=== PATIENT | female | born 1955 | race American Indian/Alaskan Native ===

== ENCOUNTER 2017-08-31 17:47 | Emergency (ER) | payer SELFPAY ==
[2017-08-31] MEDS ORDERED: GEODON IM ONE (19:24)
[2017-08-31] MEDS ORDERED: ATIVAN IM ONE (19:25)
[2017-08-31] MEDS ORDERED: BENADRYL IM ONE (19:25)
[2017-08-31 20:25] LABS: Basophils # (Auto) 0.1 K/mm3 (0.0-0.1); Basophils % (Auto) 0.6 % (0.0-1.8); Eosinophils # (Auto) 0.1 K/mm3 (0.0-0.4); Eosinophils % (Auto) 0.7 % (0.0-4.3); Hematocrit 38.6 % (30.3-42.9); Lymphocytes # (Auto) 2.4 K/mm3 (1.2-5.4); Mean Corpuscular HGB Conc 31 % (30-34); Mean Corpuscular Hemoglobin 22 pg (28-32); Mean Corpuscular Volume 70 fl (79-97); Monocytes # (Auto) 0.6 K/mm3 (0.0-0.8); Monocytes % (Auto) 6.1 % (0.0-7.3); Platelet Count 431 K/mm3 (140-440); Red Blood Count 5.54 M/mm3 (3.65-5.03); Red Cell Distribution Width 18.2 % (13.2-15.2)
[2017-08-31 20:37] LABS: Bacteria,Urine 1+ /HPF (Negative); Bilirubin,Urine NEG (Negative); Blood,Urine NEG (Negative); Color,Urine Yellow (Yellow); Granular Casts,Urine 14 /LPF; Hyaline Casts,Urine 19 /LPF; Mucus,Urine FEW /HPF; Urobilinogen,Urine < 2.0 mg/dL (<2.0)
[2017-08-31 20:50] LABS: Amphetamine Screen,Urine PRESUMPTIVE NEGATIVE; Benzodiazepines Screen,Urine PRESUMPTIVE NEGATIVE; Cannabinoid Screen,Urine PRESUMPTIVE NEGATIVE; Cocaine Screen,Urine PRESUMPTIVE NEGATIVE; Methadone Screen,Urine PRESUMPTIVE NEGATIVE; Opiate Screen,Urine PRESUMPTIVE NEGATIVE
[2017-08-31 21:11] LABS: BUN/Creatinine Ratio 9; Blood Urea Nitrogen 6 mg/dL (7-17); Calcium 8.9 mg/dL (8.4-10.2); Hemolysis Index 3
[2017-08-31] MEDS ORDERED: NACL 0.9% 1000 ML 1,000 ML IV ONE ×2 (22:21)
[2017-08-31] MEDS ORDERED: ROCEPHIN 500 MG in NACL 0.9% 50 ML IV ONE (22:22)
[2017-08-31] MEDS ORDERED: cefTRIAXone 0.5 GM in NACL 0.9% 20 ML IV ONE (22:30)
[2017-08-31] MEDS ORDERED: POTASSIUM CHLORIDE PO ONE (22:37)
[2017-08-31] MEDS ORDERED: ATARAX PO PRN (23:25)
[2017-08-31] MEDS ORDERED: DESYREL PO ONE (23:26)
--- NOTE | 2017-09-01 01:03 | Emergency Department Report ---
<RAHUL GUERRERO - Last Filed: 09/01/17 03:14> ED Psych HPI - General Chief Complaint: Psych Stated Complaint: MH EVAL Time Seen by Provider: 08/31/17 19:00 - Related Data Home Medications Medication Instructions Recorded Confirmed Last Taken Buspirone HCl [busPIRone] 7.5 mg PO BID 09/01/17 09/01/17 Unknown Escitalopram [Lexapro] 20 mg PO DAILY 09/01/17 09/01/17 Unknown Levothyroxine [Synthroid] 25 mcg PO QAM 09/01/17 09/01/17 Unknown Loratadine [Claritin] 10 mg PO DAILY 09/01/17 09/01/17 Unknown Polyethylene Glycol 3350 [Miralax 17 gm PO QDAY 09/01/17 09/01/17 Unknown 3350] Quetiapine Fumarate [QUEtiapine 25 mg PO DAILY 09/01/17 09/01/17 Unknown Fumarate] amLODIPine [Norvasc] 10 mg PO DAILY 09/01/17 09/01/17 Unknown metFORMIN [Glucophage] 1,000 mg PO BID 09/01/17 09/01/17 Unknown Allergies Allergy/AdvReac Type Severity Reaction Status Date / Time olanzapine [From Zyprexa] Allergy Hives Verified 08/31/17 17:58 ED Review of Systems ROS: Stated complaint: MH EVAL Other details as noted in HPI ED Past Medical Hx - Medications Home Medications: Home Medications Medication Instructions Recorded Confirmed Last Taken Type Buspirone HCl [busPIRone] 7.5 mg PO BID 09/01/17 09/01/17 Unknown History Escitalopram [Lexapro] 20 mg PO DAILY 09/01/17 09/01/17 Unknown History Levothyroxine [Synthroid] 25 mcg PO QAM 09/01/17 09/01/17 Unknown History Loratadine [Claritin] 10 mg PO DAILY 09/01/17 09/01/17 Unknown History Polyethylene Glycol 3350 [Miralax 17 gm PO QDAY 09/01/17 09/01/17 Unknown History 3350] Quetiapine Fumarate [QUEtiapine 25 mg PO DAILY 09/01/17 09/01/17 Unknown History Fumarate] amLODIPine [Norvasc] 10 mg PO DAILY 09/01/17 09/01/17 Unknown History metFORMIN [Glucophage] 1,000 mg PO BID 09/01/17 09/01/17 Unknown History ED Course Vital Signs 08/31/17 08/31/17 09/01/17 18:26 21:57 00:42 Temperature 98.9 F 98.1 F Pulse Rate 113 H 81 Respiratory 16 16 18 Rate Blood Pressure Blood Pressure 164/90 125/65 [Right] O2 Sat by Pulse 99 98 98 Oximetry 09/01/17 09/01/17 08:45 13:00 Temperature 98.7 F Pulse Rate 74 88 Respiratory 20 Rate Blood Pressure 144/83 Blood Pressure 130/64 [Right] O2 Sat by Pulse 98 Oximetry - Reevaluation(s) Reevaluation #3: 09/01/17 03:14 Laboratory studies reviewed and appreciated. The patient's sodium has been corrected appropriately. there does not appear to be an immediate medical contraindication to psychiatric admission, evaluation and consultation at this time. Crisis team is informed. ED Medical Decision Making - Lab Data Result diagrams: 08/31/17 20:11 09/01/17 01:51 Critical care attestation.: If time is entered above; I have spent that time in minutes in the direct care of this critically ill patient, excluding procedure time. ED Disposition Clinical Impression: Acute psychosis, Combative behavior, Paranoia, Medical clearance for psychiatric admission Disposition: [id number] PSY HOSP/PSY UNIT Condition: Stable <FRANSISCA KNIGHT - Last Filed: 09/01/17 20:58> ED Psych HPI - General Source: EMS Mode of arrival: Stretcher Limitations: No Limitations - History of Present Illness Initial Comments: 62-year-old female with a psychiatric history and history of diabetes, hypothyroidism, and hypertension (based on medlist) presents to the hospital from home with paranoia, psychosis, and combative behavior. Patient apparently stating that the devil was at the shelter and his mother's children. Patient is agitated and does not want to be examined. She is actively psychotic and aggressive in the ED. No further history of present illness available at this time ED Review of Systems Comment: Unobtainable due to pts medical conditions ED Past Medical Hx - Past Medical History Previous Medical History?: Yes Hx Hypertension: Yes Hx Diabetes: Yes Hx Psychiatric Treatment: Yes Additional medical history: Hypothyroidism - Social History Smoking Status: Unknown if ever smoked ED Physical Exam - General Limitations: No Limitations - Other Other exam information: General: Patient presents alert and yelling Head exam: Atraumatic, normocephalic Eyes exam: Normal appearance, pupils equal reactive to light ENT: Moist mucous membrane, normal oropharynx Neck exam: Normal inspection, full range of motion, no meningismus nontender Respiratory exam: Clear to auscultation bilateral, no wheezes, rales, crackles Cardiovascular: Normal rate and rhythm, normal heart sounds Abdomen: Soft, nondistended, and nontender, with normal bowel sounds, no rebound, or guarding Extremity: Full range of motion normal inspection no deformity Back: Normal Inspection, full range of motion, no tenderness Neurologic: Alert, delusional, combative, creatinine nerves intact without facial droop, no motor or sensory deficit and ambulating without difficulty Psychiatric: Delusional, psychotic, combative Skin: Warm, dry, intact ED Course - Reevaluation(s) Reevaluation #1: 09/01/17 01:00 Patient required Geodon, Ativan, and Benadryl IM noted for her to be cooperative. Now she is more cooperative although still psychotic. She is following commands and able to take oral medication Reevaluation #2: 09/01/17 01:10 I initially continue patient's medications as listed on the MAR on the chart during previous nursing shift. However, patient presents paperwork from [facility] ( june) provided has a completely different listed of medication. I am unclear as to what patient medications. I canceled the reconcolled meds and instructed RN to place the meds listed on the d/c paperwork as her current meds. - Consultations Consultation #1: 08/31/17 Case was discussed with Dr. Loredo events and promotions assistant for nephrology regarding hyponatremia. Patient will be treated with 2 L of normal saline and value will repeated. ED Medical Decision Making - Lab Data Result diagrams: 08/31/17 20:11 09/01/17 01:51 Lab Results 08/31/17 08/31/17 08/31/17 Range/Units 18:53 18:53 20:11 WBC (4.5-11.0) K/mm3 RBC (3.65-5.03) M/mm3 Hgb (10.1-14.3) gm/dl Hct (30.3-42.9) % MCV (79-97) fl MCH (28-32) pg MCHC (30-34) % RDW (13.2-15.2) % Plt Count (140-440) K/mm3 Lymph % (Auto) (13.4-35.0) % [place] % (Auto) (0.0-7.3) % Eos % (Auto) (0.0-4.3) % Baso % (Auto) (0.0-1.8) % Lymph # (1.2-5.4) K/mm3 [place] # (0.0-0.8) K/mm3 Eos # (0.0-0.4) K/mm3 Baso # (0.0-0.1) K/mm3 Seg Neutrophils % (40.0-70.0) % Seg Neutrophils # (1.8-7.7) K/mm3 Sodium (137-145) mmol/L Potassium (3.6-5.0) mmol/L Chloride (98-107) mmol/L Carbon Dioxide (22-30) mmol/L Anion Gap mmol/L BUN (7-17) mg/dL Creatinine (0.7-1.2) mg/dL Estimated GFR ml/min BUN/Creatinine Ratio % Glucose (65-100) mg/dL Calcium (8.4-10.2) mg/dL Magnesium (1.7-2.3) mg/dL Urine Color Yellow (Yellow) Urine Turbidity Clear (Clear) Urine pH 6.0 (5.0-7.0) Ur Specific [place] 1.010 (1.003-1.030) Urine Protein 100 mg/dl (Negative) mg/dL Urine Glucose (UA) Neg (Negative) mg/dL Urine Ketones Neg (Negative) mg/dL Urine Blood Neg (Negative) Urine Nitrite Neg (Negative) Urine Bilirubin Neg (Negative) Urine Urobilinogen < 2.0 (<2.0) mg/dL Ur Leukocyte Esterase Tr (Negative) Urine WBC (Auto) 15.0 H (0.0-6.0) /HPF Urine RBC (Auto) 4.0 (0.0-6.0) /HPF U Epithel Cells (Auto) 4.0 (0-13.0) /HPF Urine Bacteria (Auto) 1+ (Negative) /HPF Hyaline Casts 19 /LPF Granular Casts 14 /LPF Urine Mucus Few /HPF Salicylates < 0.3 L (2.8-20.0) mg/dL Urine Opiates Screen Presumptive negative Urine Methadone Screen Presumptive negative Acetaminophen (10.0-30.0) ug/mL Ur Barbiturates Screen Presumptive negative Valproic Acid (50-100) ug/mL Ur Phencyclidine Scrn Presumptive negative Ur Amphetamines Screen Presumptive negative U Benzodiazepines Scrn Presumptive negative Urine Cocaine Screen Presumptive negative U Marijuana (THC) Screen Presumptive negative Drugs of Abuse Note Disclamer Plasma/Serum Alcohol (0-0.07) % 08/31/17 08/31/17 08/31/17 Range/Units 20:11 20:11 20:11 WBC (4.5-11.0) K/mm3 RBC (3.65-5.03) M/mm3 Hgb (10.1-14.3) gm/dl Hct (30.3-42.9) % MCV (79-97) fl MCH (28-32) pg MCHC (30-34) % RDW (13.2-15.2) % Plt Count (140-440) K/mm3 Lymph % (Auto) (13.4-35.0) % [place] % (Auto) (0.0-7.3) % Eos % (Auto) (0.0-4.3) % Baso % (Auto) (0.0-1.8) % Lymph # (1.2-5.4) K/mm3 [place] # (0.0-0.8) K/mm3 Eos # (0.0-0.4) K/mm3 Baso # (0.0-0.1) K/mm3 Seg Neutrophils % (40.0-70.0) % Seg Neutrophils # (1.8-7.7) K/mm3 Sodium 127 L (137-145) mmol/L Potassium 3.1 L (3.6-5.0) mmol/L Chloride 88.1 L (98-107) mmol/L Carbon Dioxide 21 L (22-30) mmol/L Anion Gap 21 mmol/L BUN 6 L (7-17) mg/dL Creatinine 0.7 (0.7-1.2) mg/dL Estimated GFR > 60 ml/min BUN/Creatinine Ratio 9 % Glucose 169 H (65-100) mg/dL Calcium 8.9 (8.4-10.2) mg/dL Magnesium (1.7-2.3) mg/dL Urine Color (Yellow) Urine Turbidity (Clear) Urine pH (5.0-7.0) Ur Specific [place] (1.003-1.030) Urine Protein (Negative) mg/dL Urine Glucose (UA) (Negative) mg/dL Urine Ketones (Negative) mg/dL Urine Blood (Negative) Urine Nitrite (Negative) Urine Bilirubin (Negative) Urine Urobilinogen (<2.0) mg/dL Ur Leukocyte Esterase (Negative) Urine WBC (Auto) (0.0-6.0) /HPF Urine RBC (Auto) (0.0-6.0) /HPF U Epithel Cells (Auto) (0-13.0) /HPF Urine Bacteria (Auto) (Negative) /HPF Hyaline Casts /LPF Granular Casts /LPF Urine Mucus /HPF Salicylates (2.8-20.0) mg/dL Urine Opiates Screen Urine Methadone Screen Acetaminophen < 5.0 L (10.0-30.0) ug/mL Ur Barbiturates Screen Valproic Acid (50-100) ug/mL Ur Phencyclidine Scrn Ur Amphetamines Screen U Benzodiazepines Scrn Urine Cocaine Screen U Marijuana (THC) Screen Drugs of Abuse Note Plasma/Serum Alcohol < 0.01 (0-0.07) % 08/31/17 08/31/17 08/31/17 Range/Units 20:11 22:55 Unknown WBC 9.1 (4.5-11.0) K/mm3 RBC 5.54 H (3.65-5.03) M/mm3 Hgb 12.0 (10.1-14.3) gm/dl Hct 38.6 (30.3-42.9) % MCV 70 L (79-97) fl MCH 22 L (28-32) pg MCHC 31 (30-34) % RDW 18.2 H (13.2-15.2) % Plt Count 431 (140-440) K/mm3 Lymph % (Auto) 26.0 (13.4-35.0) % [place] % (Auto) 6.1 (0.0-7.3) % Eos % (Auto) 0.7 (0.0-4.3) % Baso % (Auto) 0.6 (0.0-1.8) % Lymph # 2.4 (1.2-5.4) K/mm3 [place] # 0.6 (0.0-0.8) K/mm3 Eos # 0.1 (0.0-0.4) K/mm3 Baso # 0.1 (0.0-0.1) K/mm3 Seg Neutrophils % 66.6 (40.0-70.0) % Seg Neutrophils # 6.1 (1.8-7.7) K/mm3 Sodium (137-145) mmol/L Potassium (3.6-5.0) mmol/L Chloride (98-107) mmol/L Carbon Dioxide (22-30) mmol/L Anion Gap mmol/L BUN (7-17) mg/dL Creatinine (0.7-1.2) mg/dL Estimated GFR ml/min BUN/Creatinine Ratio % Glucose (65-100) mg/dL Calcium (8.4-10.2) mg/dL Magnesium 1.70 (1.7-2.3) mg/dL Urine Color (Yellow) Urine Turbidity (Clear) Urine pH (5.0-7.0) Ur Specific [place] (1.003-1.030) Urine Protein (Negative) mg/dL Urine Glucose (UA) (Negative) mg/dL Urine Ketones (Negative) mg/dL Urine Blood (Negative) Urine Nitrite (Negative) Urine Bilirubin (Negative) Urine Urobilinogen (<2.0) mg/dL Ur Leukocyte Esterase (Negative) Urine WBC (Auto) (0.0-6.0) /HPF Urine RBC (Auto) (0.0-6.0) /HPF U Epithel Cells (Auto) (0-13.0) /HPF Urine Bacteria (Auto) (Negative) /HPF Hyaline Casts /LPF Granular Casts /LPF Urine Mucus /HPF Salicylates (2.8-20.0) mg/dL Urine Opiates Screen Urine Methadone Screen Acetaminophen (10.0-30.0) ug/mL Ur Barbiturates Screen Valproic Acid 3.0 L (50-100) ug/mL Ur Phencyclidine Scrn Ur Amphetamines Screen U Benzodiazepines Scrn Urine Cocaine Screen U Marijuana (THC) Screen Drugs of Abuse Note Plasma/Serum Alcohol (0-0.07) % - Medical Decision Making Acute agitation and psychosis Patient required IM medication and he ED for cooperation We'll continue currently prescribed medication orally Mild Hyponatremia 2 L normal saline provided Repeat pending Mild Hypokalemia By mouth potassium provided UTI IV Rocephin initiated Macrobid by mouth will be continued Pt s/o to Dr Guerrero, recheck sodium levels, K levels, may be medically cleared if they improve chart reviewed the next day. Electrolytes abnormalities have been corrected and patient is medically cleared for psychiatric transfer. - Differential Diagnosis psychosis, encephalopathy, paranoia, Critical Care Time: No ED Disposition Is pt being admited?: No Time of Disposition: 01:36
[2017-09-01 02:40] LABS: BUN/Creatinine Ratio 9; Blood Urea Nitrogen 6 mg/dL (7-17); Hemolysis Index 0
[2017-09-01] MEDS: SYNTHROID PO SCH (06:35)
[2017-09-01] MEDS: GLUCOPHAGE PO SCH ×2 (09:00→17:56)
[2017-09-01] MEDS ORDERED: NON-FORMULARY (Omeprazole [Omeprazole] 40 MG) PO SCH (10:00)
[2017-09-01] MEDS ORDERED: BUSPIRONE HCL 7.5 MG PO SCH (10:00)
[2017-09-01] MEDS ORDERED: PROTONIX PO SCH (10:00)
[2017-09-01] MEDS ORDERED: BENADRYL PO SCH (10:00)
[2017-09-01] MEDS ORDERED: NORVASC PO SCH (10:00)
[2017-09-01] MEDS ORDERED: DETROL LA PO SCH (10:00)
[2017-09-01] MEDS ORDERED: QUETIAPINE FUMARATE 25 MG PO SCH (10:00)
[2017-09-01] MEDS ORDERED: MOBIC PO SCH (10:00)
[2017-09-01] MEDS: BUSPAR PO SCH ×2 (12:57→22:00)
[2017-09-01] MEDS: NORVASC PO SCH (13:00)
[2017-09-01] MEDS: MACROBID PO SCH ×2 (13:00→22:00)
[2017-09-01] MEDS: LEXAPRO PO SCH (13:00)
[2017-09-01] MEDS: CLARITIN PO SCH (13:00)
[2017-09-01] MEDS: MIRALAX 3350 PO SCH (13:15)
[2017-09-01] MEDS ORDERED: DESYREL PO SCH (22:00)
[2017-09-02] MEDS ORDERED: TYLENOL PO ONE (00:34)
[2017-09-02] MEDS: SYNTHROID PO SCH (06:10)
[2017-09-02] MEDS: GLUCOPHAGE PO SCH ×2 (08:00→17:12)
[2017-09-02] MEDS: LEXAPRO PO SCH (09:53)
[2017-09-02] MEDS: BUSPAR PO SCH ×2 (09:53→22:09)
[2017-09-02] MEDS: NORVASC PO SCH (09:53)
[2017-09-02] MEDS: CLARITIN PO SCH (09:53)
[2017-09-02] MEDS: MACROBID PO SCH ×2 (10:00→22:09)
[2017-09-02] MEDS: MIRALAX 3350 PO SCH (10:00)
--- NOTE | 2017-09-02 10:55 | Emergency Department Report ---
ED Neuro Deficit HPI - General Chief Complaint: Psych Stated Complaint: MH EVAL Time Seen by Provider: 08/31/17 19:00 Source: EMS Mode of arrival: Stretcher Limitations: No Limitations - Related Data Home Medications: Home Medications Medication Instructions Recorded Confirmed Last Taken Buspirone HCl [busPIRone] 7.5 mg PO BID 09/01/17 09/01/17 Unknown Escitalopram [Lexapro] 20 mg PO DAILY 09/01/17 09/01/17 Unknown Levothyroxine [Synthroid] 25 mcg PO QAM 09/01/17 09/01/17 Unknown Loratadine [Claritin] 10 mg PO DAILY 09/01/17 09/01/17 Unknown Polyethylene Glycol 3350 [Miralax 17 gm PO QDAY 09/01/17 09/01/17 Unknown 3350] Quetiapine Fumarate [QUEtiapine 25 mg PO DAILY 09/01/17 09/01/17 Unknown Fumarate] amLODIPine [Norvasc] 10 mg PO DAILY 09/01/17 09/01/17 Unknown metFORMIN [Glucophage] 1,000 mg PO BID 09/01/17 09/01/17 Unknown Allergies/Adverse Reactions: Allergies Allergy/AdvReac Type Severity Reaction Status Date / Time olanzapine [From Zyprexa] Allergy Hives Verified 08/31/17 17:58 ED Review of Systems ROS: Stated complaint: MH EVAL Other details as noted in HPI ED Past Medical Hx - Past Medical History Previous Medical History?: Yes Hx Hypertension: Yes Hx Diabetes: Yes Hx Psychiatric Treatment: Yes Additional medical history: Hypothyroidism - Social History Smoking Status: Unknown if ever smoked - Medications Home Medications: Home Medications Medication Instructions Recorded Confirmed Last Taken Type Buspirone HCl [busPIRone] 7.5 mg PO BID 09/01/17 09/01/17 Unknown History Escitalopram [Lexapro] 20 mg PO DAILY 09/01/17 09/01/17 Unknown History Levothyroxine [Synthroid] 25 mcg PO QAM 09/01/17 09/01/17 Unknown History Loratadine [Claritin] 10 mg PO DAILY 09/01/17 09/01/17 Unknown History Polyethylene Glycol 3350 [Miralax 17 gm PO QDAY 09/01/17 09/01/17 Unknown History 3350] Quetiapine Fumarate [QUEtiapine 25 mg PO DAILY 09/01/17 09/01/17 Unknown History Fumarate] amLODIPine [Norvasc] 10 mg PO DAILY 09/01/17 09/01/17 Unknown History metFORMIN [Glucophage] 1,000 mg PO BID 09/01/17 09/01/17 Unknown History ED Neuro Physical Exam - General Limitations: No Limitations ED Course Vital Signs 08/31/17 08/31/17 09/01/17 18:26 21:57 00:42 Temperature 98.9 F 98.1 F Pulse Rate 113 H 81 Respiratory 16 16 18 Rate Blood Pressure Blood Pressure 164/90 125/65 [Right] O2 Sat by Pulse 99 98 98 Oximetry 09/01/17 09/01/17 09/01/17 08:45 13:00 20:30 Temperature 98.7 F 97.2 F L Pulse Rate 74 88 90 Respiratory 20 18 Rate Blood Pressure 144/83 Blood Pressure 130/64 133/84 [Right] O2 Sat by Pulse 98 99 Oximetry 09/02/17 10:01 Temperature Pulse Rate 74 Respiratory 18 Rate Blood Pressure Blood Pressure 143/86 [Right] O2 Sat by Pulse 98 Oximetry - Lab Data Result diagrams: 08/31/17 20:11 09/01/17 01:51 Lab Results 08/31/17 08/31/17 08/31/17 Range/Units 18:53 18:53 20:11 WBC (4.5-11.0) K/mm3 RBC (3.65-5.03) M/mm3 Hgb (10.1-14.3) gm/dl Hct (30.3-42.9) % MCV (79-97) fl MCH (28-32) pg MCHC (30-34) % RDW (13.2-15.2) % Plt Count (140-440) K/mm3 Lymph % (Auto) (13.4-35.0) % [place] % (Auto) (0.0-7.3) % Eos % (Auto) (0.0-4.3) % Baso % (Auto) (0.0-1.8) % Lymph # (1.2-5.4) K/mm3 [place] # (0.0-0.8) K/mm3 Eos # (0.0-0.4) K/mm3 Baso # (0.0-0.1) K/mm3 Seg Neutrophils % (40.0-70.0) % Seg Neutrophils # (1.8-7.7) K/mm3 Sodium (137-145) mmol/L Potassium (3.6-5.0) mmol/L Chloride (98-107) mmol/L Carbon Dioxide (22-30) mmol/L Anion Gap mmol/L BUN (7-17) mg/dL Creatinine (0.7-1.2) mg/dL Estimated GFR ml/min BUN/Creatinine Ratio % Glucose (65-100) mg/dL Calcium (8.4-10.2) mg/dL Magnesium (1.7-2.3) mg/dL Urine Color Yellow (Yellow) Urine Turbidity Clear (Clear) Urine pH 6.0 (5.0-7.0) Ur Specific [place] 1.010 (1.003-1.030) Urine Protein 100 mg/dl (Negative) mg/dL Urine Glucose (UA) Neg (Negative) mg/dL Urine Ketones Neg (Negative) mg/dL Urine Blood Neg (Negative) Urine Nitrite Neg (Negative) Urine Bilirubin Neg (Negative) Urine Urobilinogen < 2.0 (<2.0) mg/dL Ur Leukocyte Esterase Tr (Negative) Urine WBC (Auto) 15.0 H (0.0-6.0) /HPF Urine RBC (Auto) 4.0 (0.0-6.0) /HPF U Epithel Cells (Auto) 4.0 (0-13.0) /HPF Urine Bacteria (Auto) 1+ (Negative) /HPF Hyaline Casts 19 /LPF Granular Casts 14 /LPF Urine Mucus Few /HPF Salicylates < 0.3 L (2.8-20.0) mg/dL Urine Opiates Screen Presumptive negative Urine Methadone Screen Presumptive negative Acetaminophen (10.0-30.0) ug/mL Ur Barbiturates Screen Presumptive negative Valproic Acid (50-100) ug/mL Ur Phencyclidine Scrn Presumptive negative Ur Amphetamines Screen Presumptive negative U Benzodiazepines Scrn Presumptive negative Urine Cocaine Screen Presumptive negative U Marijuana (THC) Screen Presumptive negative Drugs of Abuse Note Disclamer Plasma/Serum Alcohol (0-0.07) % 08/31/17 08/31/17 08/31/17 Range/Units 20:11 20:11 20:11 WBC (4.5-11.0) K/mm3 RBC (3.65-5.03) M/mm3 Hgb (10.1-14.3) gm/dl Hct (30.3-42.9) % MCV (79-97) fl MCH (28-32) pg MCHC (30-34) % RDW (13.2-15.2) % Plt Count (140-440) K/mm3 Lymph % (Auto) (13.4-35.0) % [place] % (Auto) (0.0-7.3) % Eos % (Auto) (0.0-4.3) % Baso % (Auto) (0.0-1.8) % Lymph # (1.2-5.4) K/mm3 [place] # (0.0-0.8) K/mm3 Eos # (0.0-0.4) K/mm3 Baso # (0.0-0.1) K/mm3 Seg Neutrophils % (40.0-70.0) % Seg Neutrophils # (1.8-7.7) K/mm3 Sodium 127 L (137-145) mmol/L Potassium 3.1 L (3.6-5.0) mmol/L Chloride 88.1 L (98-107) mmol/L Carbon Dioxide 21 L (22-30) mmol/L Anion Gap 21 mmol/L BUN 6 L (7-17) mg/dL Creatinine 0.7 (0.7-1.2) mg/dL Estimated GFR > 60 ml/min BUN/Creatinine Ratio 9 % Glucose 169 H (65-100) mg/dL Calcium 8.9 (8.4-10.2) mg/dL Magnesium (1.7-2.3) mg/dL Urine Color (Yellow) Urine Turbidity (Clear) Urine pH (5.0-7.0) Ur Specific [place] (1.003-1.030) Urine Protein (Negative) mg/dL Urine Glucose (UA) (Negative) mg/dL Urine Ketones (Negative) mg/dL Urine Blood (Negative) Urine Nitrite (Negative) Urine Bilirubin (Negative) Urine Urobilinogen (<2.0) mg/dL Ur Leukocyte Esterase (Negative) Urine WBC (Auto) (0.0-6.0) /HPF Urine RBC (Auto) (0.0-6.0) /HPF U Epithel Cells (Auto) (0-13.0) /HPF Urine Bacteria (Auto) (Negative) /HPF Hyaline Casts /LPF Granular Casts /LPF Urine Mucus /HPF Salicylates (2.8-20.0) mg/dL Urine Opiates Screen Urine Methadone Screen Acetaminophen < 5.0 L (10.0-30.0) ug/mL Ur Barbiturates Screen Valproic Acid (50-100) ug/mL Ur Phencyclidine Scrn Ur Amphetamines Screen U Benzodiazepines Scrn Urine Cocaine Screen U Marijuana (THC) Screen Drugs of Abuse Note Plasma/Serum Alcohol < 0.01 (0-0.07) % 08/31/17 08/31/17 08/31/17 Range/Units 20:11 22:55 Unknown WBC 9.1 (4.5-11.0) K/mm3 RBC 5.54 H (3.65-5.03) M/mm3 Hgb 12.0 (10.1-14.3) gm/dl Hct 38.6 (30.3-42.9) % MCV 70 L (79-97) fl MCH 22 L (28-32) pg MCHC 31 (30-34) % RDW 18.2 H (13.2-15.2) % Plt Count 431 (140-440) K/mm3 Lymph % (Auto) 26.0 (13.4-35.0) % [place] % (Auto) 6.1 (0.0-7.3) % Eos % (Auto) 0.7 (0.0-4.3) % Baso % (Auto) 0.6 (0.0-1.8) % Lymph # 2.4 (1.2-5.4) K/mm3 [place] # 0.6 (0.0-0.8) K/mm3 Eos # 0.1 (0.0-0.4) K/mm3 Baso # 0.1 (0.0-0.1) K/mm3 Seg Neutrophils % 66.6 (40.0-70.0) % Seg Neutrophils # 6.1 (1.8-7.7) K/mm3 Sodium (137-145) mmol/L Potassium (3.6-5.0) mmol/L Chloride (98-107) mmol/L Carbon Dioxide (22-30) mmol/L Anion Gap mmol/L BUN (7-17) mg/dL Creatinine (0.7-1.2) mg/dL Estimated GFR ml/min BUN/Creatinine Ratio % Glucose (65-100) mg/dL Calcium (8.4-10.2) mg/dL Magnesium 1.70 (1.7-2.3) mg/dL Urine Color (Yellow) Urine Turbidity (Clear) Urine pH (5.0-7.0) Ur Specific [place] (1.003-1.030) Urine Protein (Negative) mg/dL Urine Glucose (UA) (Negative) mg/dL Urine Ketones (Negative) mg/dL Urine Blood (Negative) Urine Nitrite (Negative) Urine Bilirubin (Negative) Urine Urobilinogen (<2.0) mg/dL Ur Leukocyte Esterase (Negative) Urine WBC (Auto) (0.0-6.0) /HPF Urine RBC (Auto) (0.0-6.0) /HPF U Epithel Cells (Auto) (0-13.0) /HPF Urine Bacteria (Auto) (Negative) /HPF Hyaline Casts /LPF Granular Casts /LPF Urine Mucus /HPF Salicylates (2.8-20.0) mg/dL Urine Opiates Screen Urine Methadone Screen Acetaminophen (10.0-30.0) ug/mL Ur Barbiturates Screen Valproic Acid 3.0 L (50-100) ug/mL Ur Phencyclidine Scrn Ur Amphetamines Screen U Benzodiazepines Scrn Urine Cocaine Screen U Marijuana (THC) Screen Drugs of Abuse Note Plasma/Serum Alcohol (0-0.07) % 09/01/17 Range/Units 01:51 WBC (4.5-11.0) K/mm3 RBC (3.65-5.03) M/mm3 Hgb (10.1-14.3) gm/dl Hct (30.3-42.9) % MCV (79-97) fl MCH (28-32) pg MCHC (30-34) % RDW (13.2-15.2) % Plt Count (140-440) K/mm3 Lymph % (Auto) (13.4-35.0) % [place] % (Auto) (0.0-7.3) % Eos % (Auto) (0.0-4.3) % Baso % (Auto) (0.0-1.8) % Lymph # (1.2-5.4) K/mm3 [place] # (0.0-0.8) K/mm3 Eos # (0.0-0.4) K/mm3 Baso # (0.0-0.1) K/mm3 Seg Neutrophils % (40.0-70.0) % Seg Neutrophils # (1.8-7.7) K/mm3 Sodium 136 L D (137-145) mmol/L Potassium 4.1 D (3.6-5.0) mmol/L Chloride 98.6 (98-107) mmol/L Carbon Dioxide 25 (22-30) mmol/L Anion Gap 17 mmol/L BUN 6 L (7-17) mg/dL Creatinine 0.7 (0.7-1.2) mg/dL Estimated GFR > 60 ml/min BUN/Creatinine Ratio 9 % Glucose 133 H (65-100) mg/dL Calcium 8.0 L (8.4-10.2) mg/dL Magnesium (1.7-2.3) mg/dL Urine Color (Yellow) Urine Turbidity (Clear) Urine pH (5.0-7.0) Ur Specific [place] (1.003-1.030) Urine Protein (Negative) mg/dL Urine Glucose (UA) (Negative) mg/dL Urine Ketones (Negative) mg/dL Urine Blood (Negative) Urine Nitrite (Negative) Urine Bilirubin (Negative) Urine Urobilinogen (<2.0) mg/dL Ur Leukocyte Esterase (Negative) Urine WBC (Auto) (0.0-6.0) /HPF Urine RBC (Auto) (0.0-6.0) /HPF U Epithel Cells (Auto) (0-13.0) /HPF Urine Bacteria (Auto) (Negative) /HPF Hyaline Casts /LPF Granular Casts /LPF Urine Mucus /HPF Salicylates (2.8-20.0) mg/dL Urine Opiates Screen Urine Methadone Screen Acetaminophen (10.0-30.0) ug/mL Ur Barbiturates Screen Valproic Acid (50-100) ug/mL Ur Phencyclidine Scrn Ur Amphetamines Screen U Benzodiazepines Scrn Urine Cocaine Screen U Marijuana (THC) Screen Drugs of Abuse Note Plasma/Serum Alcohol (0-0.07) % Critical care attestation.: If time is entered above; I have spent that time in minutes in the direct care of this critically ill patient, excluding procedure time. ED Disposition Clinical Impression: Acute psychosis, Combative behavior, Paranoia, Medical clearance for psychiatric admission Disposition: [id number] PSY HOSP/PSY UNIT Condition: Stable Referrals: RAHUL MAURO MD [Primary Care Provider] - 3-5 Days
[2017-09-02] MEDS ORDERED: GEODON IM ONE ×2 (13:24→13:40)
[2017-09-02] MEDS ORDERED: ATIVAN ONE (13:27)
[2017-09-02] MEDS ORDERED: ATIVAN IM ONE (13:41)
[2017-09-02 13:44] LABS: Basophils % (Auto) 0.1 % (0.0-1.8); Eosinophils # (Auto) 0.2 K/mm3 (0.0-0.4); Eosinophils % (Auto) 2.2 % (0.0-4.3); Hematocrit 34.7 % (30.3-42.9); Hemoglobin 10.6 gm/dl (10.1-14.3); Lymphocytes # (Auto) 3.4 K/mm3 (1.2-5.4); Lymphocytes % (Auto) 38.2 % (13.4-35.0); Mean Corpuscular HGB Conc 31 % (30-34); Mean Corpuscular Hemoglobin 21 pg (28-32); Mean Corpuscular Volume 70 fl (79-97); Monocytes # (Auto) 0.5 K/mm3 (0.0-0.8); Monocytes % (Auto) 5.7 % (0.0-7.3); Platelet Count 426 K/mm3 (140-440); Red Blood Count 4.95 M/mm3 (3.65-5.03); Red Cell Distribution Width 18.2 % (13.2-15.2)
[2017-09-02 13:53] LABS: INR 0.86 (0.87-1.13)
[2017-09-02 13:54] LABS: Partial Thromboplastin Time 36.4 Sec. (24.2-36.6)
[2017-09-02 14:02] LABS: Creatine Kinase MB 1.4 ng/mL (0.0-4.0)
[2017-09-02 14:03] LABS: Alanine Aminotransferase 7 units/L (7-56); Albumin 3.3 g/dL (3.9-5); BUN/Creatinine Ratio 10; Bilirubin,Direct < 0.2 mg/dL (0-0.2); Blood Urea Nitrogen 6 mg/dL (7-17); Calcium 8.7 mg/dL (8.4-10.2); Hemolysis Index 13
--- NOTE | 2017-09-02 14:22 | Cat Scan Report ---
FINAL REPORT EXAM: CT HEAD/BRAIN WO CON HISTORY: ams TECHNIQUE: CT of the head was performed without intravenous contrast. PRIORS: None. FINDINGS: Mild motion artifact is present. The ventricles are nondilated. No intracranial hemorrhage, mass, mass effect, midline shift or evidence of acute ischemic infarct. The basilar cisterns are patent. There is diffuse cerebral volume loss. Moderate areas of low-attenuation are seen in the periventricular and subcortical white matter. A focal rounded area of low attenuation is seen in the left basal ganglia. Mucosal thickening of the left maxillary sinus is likely congestive or inflammatory. There is left posterior parietal extracranial soft tissue swelling. The calvarium is intact. The orbits are intact. The mastoid air cells are clear. IMPRESSION: 1. No acute intracranial abnormality. 2. Findings of chronic microvascular ischemic disease and diffuse cerebral volume loss. 3. Probable old left basal ganglia lacunar infarct. 4. Left posterior parietal extracranial soft tissue swelling.
--- NOTE | 2017-09-02 14:49 | Consultation ---
History of Present Illness - Reason for Consult Consult date: 09/01/17 Reason for consult: Initial Psychiatric Evaluation - Chief Complaint Chief complaint: " I'm here because of the damn folks [facility] the [facility]." - History of Present Psychiatric Illness Ivy is a 62 year old female who presents to the emergency room with psychosis. At the time of the initial psychiatric evaluation patient is paranoid, agitated, and irritated. Patient states " There is no such thing as mental illness. Call the police." Patient mood is labile. She speaks briefly with provider and then becomes selectively mute. Patient is agitated and does not want to be examined. She is actively psychotic and aggressive in the ED. No further history of present illness is available at this time. Patient is refusing to provide any information in regards to care. Allergies: Zyprexa- reaction unknown Past Psychiatric History: Unable to obtain History of Trauma/Abuse: Unable to obtain Social History: Unable to obtain Family History: Unable to obtain Medications and Allergies Allergies Allergy/AdvReac Type Severity Reaction Status Date / Time olanzapine [From Zyprexa] Allergy Hives Verified 08/31/17 17:58 Home Medications Medication Instructions Recorded Confirmed Last Taken Type Buspirone HCl [busPIRone] 7.5 mg PO BID 09/01/17 09/01/17 Unknown History Escitalopram [Lexapro] 20 mg PO DAILY 09/01/17 09/01/17 Unknown History Levothyroxine [Synthroid] 25 mcg PO QAM 09/01/17 09/01/17 Unknown History Loratadine [Claritin] 10 mg PO DAILY 09/01/17 09/01/17 Unknown History Polyethylene Glycol 3350 [Miralax 17 gm PO QDAY 09/01/17 09/01/17 Unknown History 3350] Quetiapine Fumarate [QUEtiapine 25 mg PO DAILY 09/01/17 09/01/17 Unknown History Fumarate] amLODIPine [Norvasc] 10 mg PO DAILY 09/01/17 09/01/17 Unknown History metFORMIN [Glucophage] 1,000 mg PO BID 09/01/17 09/01/17 Unknown History Active Meds: Active Medications Amlodipine Besylate (Norvasc) 10 mg PO DAILY [facility] Last Admin: 09/02/17 09:53 Dose: Not Given Buspirone HCl (Buspar) 7.5 mg PO BID [facility] Last Admin: 09/02/17 09:53 Dose: Not Given Escitalopram Oxalate (Lexapro) 20 mg PO DAILY [facility] Last Admin: 09/02/17 09:53 Dose: Not Given Levothyroxine Sodium (Synthroid) 25 mcg PO QAM@0600 [facility] Last Admin: 09/02/17 06:10 Dose: 25 mcg Loratadine (Claritin) 10 mg PO DAILY [facility] Last Admin: 09/02/17 09:53 Dose: Not Given Metformin HCl (Glucophage) 1,000 mg PO BIDDIAB [facility] Last Admin: 09/02/17 08:00 Dose: Not Given Nitrofurantoin Macrocrystals (Macrobid) 100 mg PO BID [facility] Stop: 09/05/17 22:01 Last Admin: 09/02/17 10:00 Dose: 100 mg Polyethylene Glycol (Miralax 3350) 17 gm PO QDAY [facility] Last Admin: 09/02/17 10:00 Dose: Not Given Quetiapine Fumarate (Seroquel) 25 mg PO DAILY [facility] Last Admin: 09/02/17 10:01 Dose: Not Given Mental Status Exam - Vital signs Last Vital Signs Temp 97.2 F L 09/01/17 20:30 Pulse 74 09/02/17 10:01 Resp 18 09/02/17 10:01 BP 143/86 09/02/17 10:01 Pulse Ox 98 09/02/17 10:01 - Exam Narrative exam: Mental Status Exam General Appearance: Well groomed Eye Contact: Intermittent Orientation: Alert and oriented x2 ( person, place) Attitude/Behavior: Uncooperative Sensorium: Distracted Psychomotor & Musculoskeletal Activity: Agitated Mood: Labile, irritable, and angry Affect: Constricted Speech/Language: Loud Thought Processes: Disorganized, loose associations Thought Content: Delusional-paranoia Perception: Internally preoccupied Concentration/Attention: Impaired Concentration/Attention Suicidal Ideations/Plan: " Bitch get out of here" Homicidal Ideations/Plan: "There is no such thing as a mental disorder" Results Result Diagrams: 09/02/17 13:22 09/02/17 13:22 Abnormal lab results 09/02/17 09/02/17 09/02/17 Range/Units 13:22 13:22 13:22 MCV 70 L (79-97) fl MCH 21 L (28-32) pg RDW 18.2 H (13.2-15.2) % Lymph % (Auto) 38.2 H (13.4-35.0) % PT 12.1 L (12.2-14.9) Sec. INR 0.86 L (0.87-1.13) Sodium 135 L (137-145) mmol/L Chloride 97.1 L (98-107) mmol/L BUN 6 L (7-17) mg/dL Creatinine 0.6 L (0.7-1.2) mg/dL Albumin 3.3 L (3.9-5) g/dL All other labs normal. Assessment and Plan Assessment and plan: Assessment and plan: Impression: Patient has previous psychiatric diagnosis. Today patient presents agitated, paranoid, and labile. Provider unable to fully assess secondary to agitation. DDx: Psychosis Unspecified r/o Schizophrenia r/o Schizoaffective Disorder Recommendations/Plan: 1. Continue 1013 and reassess on 09/02/17. 2. Will assist with placement in regards to inpatient psychiatric services. 3. Will encourage compliance with medications including her Seroquel. Unfortunately we do not carry any liquid or sublingual version of antipsychotic medications, and hence we'll continue to encourage the patient to take the po form. 4. will continue to monitor the patient.
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
[2017-09-03] MEDS: SYNTHROID PO SCH (06:55)
[2017-09-03] MEDS: GLUCOPHAGE PO SCH ×3 (10:35→18:39)
[2017-09-03] MEDS: LEXAPRO PO SCH ×2 (10:36→12:34)
[2017-09-03] MEDS: BUSPAR PO SCH ×3 (10:36→22:21)
[2017-09-03] MEDS: CLARITIN PO SCH (11:27)
[2017-09-03] MEDS: NORVASC PO SCH (11:28)
[2017-09-03] MEDS: MIRALAX 3350 PO SCH (11:28)
[2017-09-03] MEDS: MACROBID PO SCH ×2 (11:28→22:21)
[2017-09-03] MEDS ORDERED: BENADRYL IM ONE (14:25)
[2017-09-03] MEDS: GEODON IM PRN (15:00)
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
[2017-09-03] MEDS ORDERED: TYLENOL ONE (20:35)
[2017-09-04] MEDS: SYNTHROID PO SCH (08:32)
[2017-09-04] MEDS: MIRALAX 3350 PO SCH (09:37)
[2017-09-04] MEDS: BUSPAR PO SCH ×2 (11:16→23:01)
[2017-09-04] MEDS: GLUCOPHAGE PO SCH ×2 (11:16→18:07)
[2017-09-04] MEDS: LEXAPRO PO SCH (11:16)
[2017-09-04] MEDS: MACROBID PO SCH ×2 (11:16→23:02)
[2017-09-04] MEDS: CLARITIN PO SCH (11:16)
[2017-09-04] MEDS: NORVASC PO SCH (11:17)
[2017-09-05] MEDS: MIRALAX 3350 PO SCH (10:31)
[2017-09-05] MEDS: NORVASC PO SCH (10:32)
[2017-09-05] MEDS: LEXAPRO PO SCH (10:33)
[2017-09-05] MEDS: BUSPAR PO SCH ×2 (10:33→22:25)
[2017-09-05] MEDS: CLARITIN PO SCH (10:33)
[2017-09-05] MEDS: MACROBID PO SCH ×2 (10:33→22:25)
[2017-09-05] MEDS: GLUCOPHAGE PO SCH ×2 (10:34→17:55)
[2017-09-05] MEDS: SYNTHROID PO SCH (10:34)
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
[2017-09-06] MEDS: SYNTHROID PO SCH (07:57)
[2017-09-06] MEDS: GLUCOPHAGE PO SCH ×2 (07:57→17:15)
[2017-09-06] MEDS: GEODON IM PRN (09:10)
[2017-09-06] MEDS: BUSPAR PO SCH ×2 (10:29→21:45)
[2017-09-06] MEDS: CLARITIN PO SCH (10:29)
[2017-09-06] MEDS: RisperDAL PO SCH ×2 (10:29→21:45)
[2017-09-06] MEDS: NORVASC PO SCH (10:29)
[2017-09-06] MEDS: LEXAPRO PO SCH (10:29)
[2017-09-06] MEDS: MIRALAX 3350 PO SCH (10:29)
[2017-09-07] MEDS: SYNTHROID PO SCH (06:25)
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
[2017-09-07] MEDS: GLUCOPHAGE PO SCH ×2 (11:56→18:47)
[2017-09-07] MEDS: RisperDAL PO SCH (11:57)
[2017-09-07] MEDS: BUSPAR PO SCH ×2 (11:57→22:05)
[2017-09-07] MEDS: NORVASC PO SCH (11:57)
[2017-09-07] MEDS: MIRALAX 3350 PO SCH (12:48)
[2017-09-07] MEDS: LEXAPRO PO SCH (12:48)
[2017-09-07] MEDS: CLARITIN PO SCH (12:48)
[2017-09-08] MEDS: SYNTHROID PO SCH (06:50)
[2017-09-08] MEDS: CLARITIN PO SCH (10:01)
[2017-09-08] MEDS: GLUCOPHAGE PO SCH ×2 (10:01→16:46)
[2017-09-08] MEDS: BUSPAR PO SCH ×2 (10:01→22:19)
[2017-09-08] MEDS: NORVASC PO SCH (10:02)
[2017-09-08] MEDS: LEXAPRO PO SCH (10:02)
[2017-09-08] MEDS: MIRALAX 3350 PO SCH (10:04)
--- NOTE | 2017-09-08 10:48 | Progress Note ---
Subjective - Reason for Consult Consult date: 09/08/17 Reason for consult: Psychiatry Follow-up - Chief Complaint Chief complaint: "Get out" Ivy is a 62 year old female who presents to emergency room with psychosis. Today the patient is still uncooperative and asked me to leave her room. She refused to answer any questions. No indication of side effects of her medication. Mental Status Exam - Vital signs Last Vital Signs Temp 98.6 F 09/07/17 10:44 Pulse 81 09/08/17 08:59 Resp 16 09/08/17 08:59 BP 182/89 09/08/17 08:59 Pulse Ox 99 09/08/17 08:59 - Exam Narrative exam: MSE: Appearance: uncooperative Behavior: regular eye contact Speech: regular rate and loud tone Mood: agitated Affect: congruent to mood Thought Process: tangential Thought Content: no gestures of SI/HI's Motor Activity: sitting up in chair Cognition: alert Insight: unable to assess Judgment: unable to assess Assessment and Plan Impression: Unspecified Psychosis. Today the patient is still uncooperative during the assessment. DDx: R/O Bipolar DO, Schizophrenia Recommendation/Plan: Continue 1013 with pending placement to [facility]. Continue Risperdal 2 mg PO HS for psychosis. Attempted to discuss possible metabolic side effects of Risperdal with patient.
[2017-09-08] MEDS: RisperDAL PO SCH (22:19)
[2017-09-09] MEDS: SYNTHROID PO SCH (06:03)
[2017-09-09] MEDS: MIRALAX 3350 PO SCH (10:45)
[2017-09-09] MEDS: LEXAPRO PO SCH (10:45)
[2017-09-09] MEDS: BUSPAR PO SCH ×2 (10:45→22:45)
[2017-09-09] MEDS: CLARITIN PO SCH (10:45)
[2017-09-09] MEDS: NORVASC PO SCH (10:45)
[2017-09-09] MEDS: GLUCOPHAGE PO SCH ×2 (11:31→19:13)
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
[2017-09-09] MEDS: RisperDAL PO SCH (22:45)
[2017-09-10] MEDS: SYNTHROID PO SCH (06:33)
--- NOTE | 2017-09-10 10:24 | Progress Note ---
Subjective - Reason for Consult Consult date: 09/10/17 Reason for consult: Psychiatry Follow-up - Chief Complaint Chief complaint: "I want to go home" Ivy is a 62 year old female who presents to emergency room with psychosis. Today the patient is calm and cooperative during the assessment. She stated that she wants to go home. Per the notes, no behavioral disturbance overnight. Per the staff, the patient completes her ADLs. The patient denies any side effects of her medications. Mental Status Exam - Vital signs Last Vital Signs Temp 98.2 F 09/09/17 20:00 Pulse 73 09/09/17 20:00 Resp 18 09/09/17 20:00 BP 163/91 09/09/17 20:00 Pulse Ox 99 09/09/17 20:00 - Exam Narrative exam: MSE: Appearance: calm, cooperative Behavior: regular eye contact Speech: regular rate and loud tone Mood: "okay" Affect: congruent to mood Thought Process: circumstantial Thought Content: denies SI/HI's and AVH's Motor Activity: sitting up in chair Cognition: A/O x 3 Insight: fair Judgment: fair Assessment and Plan Impression: Unspecified Psychosis. Today the patient is calm and cooperative during the assessment. This is the patient's baseline. DDx: R/O Bipolar DO, Schizophrenia, R/O Schizoaffective DO Recommendation/Plan: The patient's 1013 expires today and will not extended. Continue Risperdal 2 mg PO HS, Buspar 7.5 mg PO BID, and Lexapro 20 mg PO daily. Discussed possible metabolic side effects of Risperdal with patient. Discussed possible suicidality/medication induced cricket with patient reference Lexapro. The patient can follow-up at [facility] for outpatient psy services. [employer] involvement, the patient is homeless.
[2017-09-10] MEDS: LEXAPRO PO SCH (11:06)
[2017-09-10] MEDS: BUSPAR PO SCH (11:06)
[2017-09-10] MEDS: CLARITIN PO SCH (11:06)
[2017-09-10] MEDS: GLUCOPHAGE PO SCH (11:06)
[2017-09-10] MEDS: NORVASC PO SCH (11:15)
[2017-09-10 11:16] VITALS: BP 153/95
[2017-09-10] MEDS: MIRALAX 3350 PO SCH (11:16)
== END 2017-09-10 14:29 ==
LOC: ED 17:47 → EEVIPCON 17:47 → ED 09-10 14:29
DX: F29 Unspecified psychosis not due to a substance or known physiological condition (principal); I10 Essential (primary) hypertension; E11.9 Type 2 diabetes mellitus without complications; E03.9 Hypothyroidism, unspecified; Z88.8 Allergy status to other drugs, medicaments and biological substances
CPT/HCPCS: 36415; 70450; 80048; 80074; 80164; 80307; 81001; 82550; 82553; 82962; 83735; 84484; 85025; 85610; 85730; 96361; 96372; 96374; 99285; G0480; J0696; J1200; J2060; J3486; J7030; 80320

== ENCOUNTER 2017-09-19 11:12 | Emergency (ER) | payer SELFPAY ==
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
[2017-09-20 10:40] LABS: Bilirubin,Urine NEG (Negative); Blood,Urine NEG (Negative); Color,Urine Yellow (Yellow); Mucus,Urine FEW /HPF; Protein,Urine <15 mg/dL mg/dL (Negative); Urobilinogen,Urine < 2.0 mg/dL (<2.0)
[2017-09-20 10:54] LABS: Amphetamine Screen,Urine PRESUMPTIVE NEGATIVE; Benzodiazepines Screen,Urine PRESUMPTIVE NEGATIVE; Cannabinoid Screen,Urine PRESUMPTIVE NEGATIVE; Cocaine Screen,Urine PRESUMPTIVE NEGATIVE; Methadone Screen,Urine PRESUMPTIVE NEGATIVE; Opiate Screen,Urine PRESUMPTIVE NEGATIVE
[2017-09-20 11:01] LABS: BUN/Creatinine Ratio 12; Blood Urea Nitrogen 7 mg/dL (7-17); Hemolysis Index 2
[2017-09-20 11:02] LABS: Basophils # (Auto) 0.1 K/mm3 (0.0-0.1); Basophils % (Auto) 1.3 % (0.0-1.8); Eosinophils # (Auto) 0.1 K/mm3 (0.0-0.4); Eosinophils % (Auto) 1.5 % (0.0-4.3); Hematocrit 34.8 % (30.3-42.9); Hemoglobin 11.3 gm/dl (10.1-14.3); Lymphocytes # (Auto) 3.1 K/mm3 (1.2-5.4); Lymphocytes % (Auto) 37.4 % (13.4-35.0); Mean Corpuscular HGB Conc 33 % (30-34); Mean Corpuscular Hemoglobin 22 pg (28-32); Mean Corpuscular Volume 68 fl (79-97); Monocytes # (Auto) 0.6 K/mm3 (0.0-0.8); Monocytes % (Auto) 7.2 % (0.0-7.3); Platelet Count 641 K/mm3 (140-440); Red Blood Count 5.11 M/mm3 (3.65-5.03); Red Cell Distribution Width 17.6 % (13.2-15.2)
[2017-09-21] MEDS ORDERED: GEODON IM PRN (08:07)
[2017-09-21] MEDS ORDERED: ATARAX PO PRN (08:16)
[2017-09-21] MEDS ORDERED: NORVASC PO ONE (08:18)
[2017-09-21] MEDS ORDERED: BENADRYL PO ONE (08:22)
[2017-09-21] MEDS ORDERED: PROTONIX PO ONE (08:27)
[2017-09-21] MEDS ORDERED: WATER FOR INJ (PF) 10 ML ONE (08:30)
[2017-09-21] MEDS: DETROL LA PO SCH (11:38)
[2017-09-21] MEDS: MOBIC PO SCH ×2 (11:39→22:12)
--- NOTE | 2017-09-21 14:22 | Consultation ---
History of Present Illness - Reason for Consult Consult date: 09/21/17 Reason for consult: Mental Health Evaluation Requesting physician: KENDALL TERRAZAS - Chief Complaint Chief complaint: "Get out my room" - History of Present Psychiatric Illness 62 years old female with history of paranoid schizophrenia brought to ER for outburst at her residence. This patient is known to me. Today she is agitated and told me to get out of her room. She became belligerent and used profanity. This patient is not a good historian at this time. Medications and Allergies Allergies Allergy/AdvReac Type Severity Reaction Status Date / Time olanzapine [From Zyprexa] Allergy Hives Verified 08/31/17 17:58 Home Medications Medication Instructions Recorded Confirmed Last Taken Type amLODIPine [Norvasc] 10 mg PO DAILY 09/01/17 09/20/17 Unknown History Diphenhydramine HCl [Complete 25 mg PO BID 09/20/17 09/20/17 Unknown History Allergy] Divalproex Sodium [Depakote] 1,000 mg PO QHS 09/20/17 09/20/17 Unknown History Divalproex Sodium [Depakote] 500 mg PO QAM 09/20/17 09/20/17 Unknown History Hydroxyzine HCl 50 mg PO BID PRN 09/20/17 09/20/17 Unknown History Meloxicam [Mobic] 7.5 mg PO BID 09/20/17 09/20/17 Unknown History Omeprazole 40 mg PO DAILY 09/20/17 09/20/17 Unknown History Tolterodine Tartrate [Detrol] 2 mg PO DAILY 09/20/17 09/20/17 Unknown History Trazodone HCl 100 mg PO HS 09/20/17 09/20/17 Unknown History Active Meds: Active Medications Hydroxyzine HCl (Atarax) 25 mg PO BID PRN PRN Reason: Allergy Symptoms Meloxicam (Mobic) 7.5 mg PO BID [facility] Last Admin: 09/21/17 11:39 Dose: 7.5 mg Tolterodine Tartrate (Detrol La) 2 mg PO QDAY [facility] Last Admin: 09/21/17 11:38 Dose: 2 mg Trazodone HCl (Desyrel) 100 mg PO QHS [facility] Ziprasidone (Geodon) 10 mg IM Q8H PRN PRN Reason: Agitation Last Admin: 09/21/17 08:42 Dose: 10 mg Mental Status Exam - Vital signs Last Vital Signs Temp 97.9 F 09/21/17 07:37 Pulse 72 09/21/17 07:37 Resp 20 09/21/17 07:37 BP 145/85 09/21/17 07:37 Pulse Ox 98 09/21/17 07:37 - Exam Narrative exam: MSE: Appearance: irritated Behavior: regular eye contact Speech: regular rate with a loud tone Mood: agitated Affect: congruent to mood Thought Process: unable to assess Thought Content: unable to assess Motor Activity: ambulatory Cognition: A/O x 3 Insight: unable to assess Judgment: unable to assess Results Result Diagrams: 09/20/17 10:23 09/20/17 10:23 All other labs normal. Assessment and Plan Assessment and plan: Impression: Hx of Schizophrenia. Today she is agitated and told me to get out of her room. UDS is negative. DDx: R/O Bipolar DO, Schizoaffective DO Recommendation/Plan: Continue 1013 with placement to inpatient psy services. Start Risperdal 2 mg PO HS for mood/psychosis and Buspar 7.5 mg PO BID for anxiety. Attempted to discussed possible metabolic side effects of Risperdal with patient. Will reassess patient in 24 hours.
[2017-09-21] MEDS: BUSPAR PO SCH ×2 (15:05→22:11)
[2017-09-21] MEDS: RisperDAL PO SCH (22:12)
[2017-09-21] MEDS: DESYREL PO SCH (22:12)
[2017-09-22] MEDS: DETROL LA PO SCH (09:54)
[2017-09-22] MEDS: BUSPAR PO SCH ×2 (09:54→23:00)
[2017-09-22] MEDS: MOBIC PO SCH ×2 (09:54→22:59)
--- NOTE | 2017-09-22 17:20 | Progress Note ---
Subjective - Reason for Consult Reason for consult: agitation - Chief Complaint Chief complaint: Subjectively: Patient continues to remain fairly agitated and uncooperative. Patient refused clinical interview today. On mental status examination patient was obese uncooperative and guarded agitated increased rate tone irritable and labile concrete perseverative delusional with limited insight judgment Plan: Continue current plan of care with respect to risperidone and BuSpar Evaluate for and or obtain historical information on possible dementia diagnosis Mental Status Exam - Vital signs Last Vital Signs Temp 99.2 F 09/22/17 08:00 Pulse 76 09/22/17 08:00 Resp 18 09/22/17 08:00 BP 172/81 09/22/17 08:00 Pulse Ox 97 09/22/17 08:00
[2017-09-22] MEDS: RisperDAL PO SCH (23:00)
[2017-09-22] MEDS: DESYREL PO SCH (23:00)
[2017-09-23] MEDS ORDERED: GEODON PO ONE ×2 (06:22→22:00)
[2017-09-23] MEDS: BUSPAR PO SCH ×2 (10:58→22:00)
--- NOTE | 2017-09-23 13:50 | Progress Note ---
Subjective - Reason for Consult Consult date: 09/23/17 Reason for consult: Psychiatric Follow-up Evaluation - Chief Complaint Chief complaint: Patient agitated. Patient is a 62 years old female with history of paranoid schizophrenia brought to ER for outburst at her residence. This patient is known to me. Today patient is agitated. Patient yelling in room. She states " Yes my name is Ivy Kuhn if I'm going to [facility]. I'm ready to leave here. Most of my people are at [facility]. It was willed to me. I gave them ownership. 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 against me." Mental Status Exam - Vital signs Last Vital Signs Temp 98.3 F 09/23/17 10:00 Pulse 80 09/23/17 10:00 Resp 18 09/23/17 10:00 BP 142/79 09/23/17 10:00 Pulse Ox 99 09/23/17 10:00 - Exam Narrative exam: Mental Status Exam: General Appearance: Hospital gown, no acute distress Attitude/Behavior: Uncooperative, Defensive Sensorium/Consciousness: Distracted Orientation: Alert and oriented x 4 ( person, place, time, and date) Eye Contact: Intermittent Psychomotor & Musculoskeletal Activity: Sitting in chair Mood: " Marvelous" Affect: Constricted, incongruent Speech / Language: Loud Thought Processes: Disorgranized Thought Content: Paranoid, grandiose " Dr. Kuhn- holistic physician" Perception: +AH Suicidal ideation/plan: Patient denies Homicidal ideation/plan: Patient denies Insight: Poor Judgment: Poor Assessment and Plan Assessment and plan: Assessment and plan: Impression: Hx of Schizophrenia. Today patient is agitated. Psychosis is evident. Poor insight. UDS is negative. DDx: R/O Bipolar Disorder, Schizoaffective Disorder Recommendation/Plan: 1. Continue 1013 with placement to inpatient psychiatric services. 2. Continue Risperdal 2 mg PO HS for mood/psychosis and Buspar 7.5 mg PO BID for anxiety. Attempted to discussed possible metabolic side effects of Risperdal with patient. 3. Will reassess patient in 24 hours.
[2017-09-23] MEDS: MOBIC PO SCH ×2 (16:33→22:00)
[2017-09-23] MEDS: DETROL LA PO SCH (16:34)
[2017-09-23] MEDS: RisperDAL PO SCH (22:00)
[2017-09-23] MEDS: DESYREL PO SCH (22:00)
[2017-09-24 09:38] LABS: Basophils % (Auto) 0.5 % (0.0-1.8); Eosinophils # (Auto) 0.1 K/mm3 (0.0-0.4); Eosinophils % (Auto) 2.3 % (0.0-4.3); Hematocrit 31.5 % (30.3-42.9); Lymphocytes # (Auto) 2.3 K/mm3 (1.2-5.4); Lymphocytes % (Auto) 35.2 % (13.4-35.0); Mean Corpuscular HGB Conc 32 % (30-34); Monocytes # (Auto) 0.5 K/mm3 (0.0-0.8); Monocytes % (Auto) 6.9 % (0.0-7.3); Platelet Count 500 K/mm3 (140-440); Red Blood Count 4.59 M/mm3 (3.65-5.03); Red Cell Distribution Width 17.8 % (13.2-15.2)
[2017-09-24 09:39] LABS: Mean Corpuscular Hemoglobin 22 pg (28-32); Mean Corpuscular Volume 69 fl (79-97)
[2017-09-24] MEDS: MOBIC PO SCH ×2 (09:39→22:41)
[2017-09-24] MEDS: DETROL LA PO SCH (09:39)
[2017-09-24] MEDS: BUSPAR PO SCH ×2 (09:39→22:10)
[2017-09-24] MEDS ORDERED: GEODON IM ONE (13:40)
[2017-09-24] MEDS ORDERED: WATER FOR INJ (PF) 10 ML ONE (13:40)
[2017-09-24] MEDS: GEODON IM PRN (13:51)
--- NOTE | 2017-09-24 13:58 | Progress Note ---
Subjective - Reason for Consult Consult date: 09/24/17 Reason for consult: Psychiatry Follow-up - Chief Complaint Chief complaint: "Get out" 62 years old female with history of paranoid schizophrenia brought to ER for outburst at her residence. This patient is known to me. Today the patient continue to be agitated and uncooperative during the assessment. She would not answer any questions and asked me to leave her room. A psy assessment on this patient was unsuccessful. Mental Status Exam - Vital signs Last Vital Signs Temp 98.4 F 09/24/17 09:31 Pulse 81 09/24/17 09:31 Resp 16 09/24/17 09:33 BP 127/65 09/24/17 09:31 Pulse Ox 100 09/24/17 09:31 - Exam Narrative exam: MSE: Appearance: irritated, uncooperative Behavior: regular eye contact Speech: regular rate with a loud tone Mood: agitated Affect: congruent to mood Thought Process: unable to assess Thought Content: unable to assess Motor Activity: ambulatory Cognition: A/O x 3 Insight: unable to assess Judgment: unable to assess Assessment and Plan Impression: Hx of Schizophrenia. Today the patient is agitated and uncooperative during the assessment. UDS is negative. DDx: R/O Bipolar DO, Schizoaffective DO Recommendation/Plan: Continue 1013 with placement to inpatient psy services. Increase Risperdal to 3 mg PO HS for mood/psychosis and Buspar 7.5 mg PO BID for anxiety. Attempted to discussed possible metabolic side effects of Risperdal with patient. Will reassess patient in 24 hours.
[2017-09-24] MEDS: DESYREL PO SCH (22:10)
[2017-09-24] MEDS: RisperDAL PO SCH (22:11)
[2017-09-25] MEDS: BUSPAR PO SCH ×2 (10:58→21:44)
--- NOTE | 2017-09-25 11:59 | Progress Note ---
Subjective - Reason for Consult Consult date: 09/25/17 Reason for consult: Psychiatry Follow-up - Chief Complaint Chief complaint: "What do you want" 62 years old female with history of paranoid schizophrenia brought to ER for outburst at her residence. This patient is known to me. Today the patient continue to be agitated and uncooperative during the assessment. She used several profanity words during the interview and asked me to leave. No gestures of SI/HI's. Mental Status Exam - Vital signs Last Vital Signs Temp 98.4 F 09/24/17 09:31 Pulse 81 09/24/17 09:31 Resp 20 09/24/17 19:22 BP 127/65 09/24/17 09:31 Pulse Ox 100 09/24/17 09:31 - Exam Narrative exam: MSE: Appearance: irritated, uncooperative Behavior: regular eye contact Speech: regular rate with a loud tone Mood: agitated Affect: congruent to mood Thought Process: unable to assess Thought Content: unable to assess Motor Activity: ambulatory Cognition: A/O x 3 Insight: unable to assess Judgment: unable to assess Assessment and Plan Impression: Hx of Schizophrenia. Today the patient is agitated and uncooperative during the assessment. UDS is negative. DDx: R/O Bipolar DO, Schizoaffective DO Recommendation/Plan: Continue 1013 with placement to inpatient psy services. Increase Risperdal to 3 mg PO HS for mood/psychosis and Buspar 7.5 mg PO BID for anxiety. Attempted to discussed possible metabolic side effects of Risperdal with patient. Will reassess patient in 24 hours.
[2017-09-25] MEDS: DETROL LA PO SCH (12:05)
[2017-09-25] MEDS: MOBIC PO SCH ×2 (12:05→21:48)
[2017-09-25] MEDS: DESYREL PO SCH (21:44)
[2017-09-25] MEDS: RisperDAL PO SCH (21:47)
[2017-09-26] MEDS: GEODON IM PRN ×2 (00:50→11:32)
[2017-09-26] MEDS: MOBIC PO SCH ×2 (11:31→23:06)
[2017-09-26] MEDS: DETROL LA PO SCH (11:31)
[2017-09-26] MEDS: BUSPAR PO SCH ×2 (11:31→23:05)
[2017-09-26] MEDS: DESYREL PO SCH (23:05)
[2017-09-26] MEDS: RisperDAL PO SCH (23:05)
[2017-09-27] MEDS: BUSPAR PO SCH ×2 (12:02→22:26)
[2017-09-27] MEDS: DETROL LA PO SCH (12:03)
[2017-09-27] MEDS: MOBIC PO SCH ×2 (12:03→22:26)
--- NOTE | 2017-09-27 14:49 | Progress Note ---
Subjective - Reason for Consult Consult date: 09/27/17 Reason for consult: Psychiatric Follow-up Evaluation - Chief Complaint Chief complaint: "I'm doing good." Ivy is a 62 years old female with a history of paranoid schizophrenia brought to emergency room for outburst at her residence. This patient is known to me. Today the patient states " I slept good last night. When there is a lot men on the unit I don't sleep well. They're not treating me fairly." Patient continues to be labile and easily irritable. Endorses auditory hallucinations calling her names and paranoid thoughts. Mental Status Exam - Vital signs Last Vital Signs Temp 97.8 F 09/27/17 13:35 Pulse 74 09/27/17 13:35 Resp 18 09/27/17 13:35 BP 154/84 09/27/17 13:35 Pulse Ox 98 09/27/17 13:35 - Exam Narrative exam: Narrative exam: General Appearance: Hospital gown, casually dressed Attitude/Behavior: Cooperative Sensorium/Consciousness: Distracted Orientation: Alert and oriented x 4 (person, place, time and situation) Eye Contact: Intermittent Psychomotor & Musculoskeletal Activity: Ambulatory and sitting in chair Mood: " I'm always in a good mood." Anxious, Labile, and easily irritable Affect: Constricted, incongruent Speech / Language: Loud Thought Processes: Tangential, circumstantial Thought Content: Paranoid, hyper-judaism Perception: Auditory hallucinations " I hear people calling my name" Insight: Poor Judgment: Fair to poor Assessment and Plan Impression: Hx of Schizophrenia. Today patient is cooperative but labile. Easily irritable at times. She endorses paranoid thoughts and auditory hallucinations. She denies SI/HI. DDx: Bipolar Disorder with psychotic features r/o Schizoaffective Disorder, Bipolar type Recommendation/Plan: 1. Continue 1013 with placement to inpatient psychiatric services. 2. Continue Risperdal to 3 mg PO HS for mood/psychosis and Buspar 7.5 mg PO BID for anxiety. Attempted to discussed possible metabolic side effects of Risperdal with patient. 3. Will reassess patient in 24 hours.
[2017-09-27 17:51] LABS: Basophils # (Auto) 0.1 K/mm3 (0.0-0.1); Basophils % (Auto) 1.1 % (0.0-1.8); Eosinophils # (Auto) 0.1 K/mm3 (0.0-0.4); Eosinophils % (Auto) 1.3 % (0.0-4.3); Hematocrit 34.1 % (30.3-42.9); Hemoglobin 10.4 gm/dl (10.1-14.3); Lymphocytes # (Auto) 3.2 K/mm3 (1.2-5.4); Lymphocytes % (Auto) 30.6 % (13.4-35.0); Mean Corpuscular HGB Conc 31 % (30-34); Monocytes # (Auto) 0.8 K/mm3 (0.0-0.8); Monocytes % (Auto) 7.2 % (0.0-7.3); Platelet Count 478 K/mm3 (140-440); Red Blood Count 4.97 M/mm3 (3.65-5.03); Red Cell Distribution Width 17.3 % (13.2-15.2)
[2017-09-27 18:00] LABS: Mean Corpuscular Hemoglobin 21 pg (28-32); Mean Corpuscular Volume 69 fl (79-97)
[2017-09-27] MEDS: DESYREL PO SCH (22:26)
[2017-09-27] MEDS: RisperDAL PO SCH (22:26)
--- NOTE | 2017-09-28 08:55 | Event Note ---
Date: 09/28/17 Elevated platelet count is reviewed, and appreciated and it is asymptomatic. This is not an emergent or lethal or dangerous condition, and fluctuations in platelet count Be routinely followed up on an outpatient basis with her primary care doctor or promotion specialist.
[2017-09-28] MEDS ORDERED: ZOFRAN ODT PO ONE (10:36)
[2017-09-28] MEDS: DETROL LA PO SCH (10:38)
[2017-09-28] MEDS: MOBIC PO SCH (10:38)
[2017-09-28] MEDS: BUSPAR PO SCH (10:38)
--- NOTE | 2017-09-28 12:27 | Progress Note ---
<EDGARDO MENDEZ. - Last Filed: 09/28/17 12:38> Subjective - Reason for Consult Consult date: 09/28/17 Reason for consult: Psychiatry Follow-up - Chief Complaint Chief complaint: "Yes" 62 years old female with history of paranoid schizophrenia brought to ER for outburst at her residence. This patient is known to me. Today the patient is cooperative during the assessment. She stated that she does not live in a transitional home. She denies SI/HI's and AVH's. Per the staff, the patient is completing her ADL's. No indications of side effects of her medications. Mental Status Exam - Vital signs Last Vital Signs Temp 98.2 F 09/27/17 21:00 Pulse 82 09/27/17 21:00 Resp 20 09/27/17 21:00 BP 148/72 09/27/17 21:00 Pulse Ox 100 09/27/17 21:00 - Exam Narrative exam: MSE: Appearance: cooperative Behavior: regular eye contact Speech: regular rate with a loud tone Mood: "okay" Affect: congruent to mood Thought Process: circumstantial Thought Content: denies SI/HI's and AVH's Motor Activity: ambulatory Cognition: A/O x 3 Insight: fair Judgment: fair Assessment and Plan Impression: Hx of Schizophrenia. Today the patient is cooperative during the assessment. UDS is negative. DDx: R/O Bipolar DO, Schizoaffective DO Recommendation/Plan: The patient's 1013 has and will not be extended. Continue Risperdal to 3 mg PO HS for mood/psychosis and Buspar 7.5 mg PO BID for anxiety. Discussed possible metabolic side effects of Risperdal with patient. Case Mgmt involvement, patient may need assistance with placement. The patient can follow up with [facility] for outpatient psy services. <RADHA JEFFRIES - Last Filed: 09/28/17 21:17> Mental Status Exam - Vital signs Last Vital Signs Temp 98.2 F 09/27/17 21:00 Pulse 82 09/27/17 21:00 Resp 20 09/27/17 21:00 BP 148/72 09/27/17 21:00 Pulse Ox 100 09/27/17 21:00 Assessment and Plan Patient continues to present with psychosis- secondary to her aggression with the caregiver, we will need to be more aggressive in order to successfully treat her risk of harm for her paranoia and her irritability. Will maximize the risperdal to 6mg po qhs- patient is sub-therapeutic at the current dose compared to her prior medication history from me working with her. Will also add [place] for her mood and irritability. Will reassess tomorrow morning to see the effects of the meds.
--- NOTE | 2017-09-28 15:05 | Event Note ---
Date: 09/28/17 The patient has been seen for multiple days by psychiatry. They do not recommend extending the patient's 1013. They do recommend discharge with Risperdal and BuSpar. Patient will be discharged 1 month supply of each. Vital Signs 09/19/17 09/20/17 09/20/17 11:50 10:29 21:39 Temperature 98 F 98.4 F Pulse Rate 97 H 80 Respiratory 16 16 18 Rate Blood Pressure 177/94 Blood Pressure 149/85 [Right] O2 Sat by Pulse 97 99 Oximetry 09/21/17 09/21/17 09/22/17 07:37 20:29 08:00 Temperature 97.9 F 98.6 F 99.2 F Pulse Rate 72 90 76 Respiratory 20 20 18 Rate Blood Pressure Blood Pressure 145/85 113/74 172/81 [Right] O2 Sat by Pulse 98 98 97 Oximetry 09/22/17 09/23/17 09/23/17 18:30 10:00 19:00 Temperature 98.6 F 98.3 F 98 F Pulse Rate 80 80 78 Respiratory 16 18 18 Rate Blood Pressure Blood Pressure 148/86 142/79 132/76 [Right] O2 Sat by Pulse 100 99 100 Oximetry 09/23/17 09/24/17 09/24/17 20:00 09:31 09:33 Temperature 98.4 F Pulse Rate 81 Respiratory 16 16 16 Rate Blood Pressure Blood Pressure 127/65 [Right] O2 Sat by Pulse 100 100 Oximetry 09/24/17 09/25/17 09/27/17 19:22 19:48 13:35 Temperature 98.7 F 97.8 F Pulse Rate 81 74 Respiratory 20 18 18 Rate Blood Pressure Blood Pressure 154/87 154/84 [Right] O2 Sat by Pulse 100 98 Oximetry 09/27/17 21:00 Temperature 98.2 F Pulse Rate 82 Respiratory 20 Rate Blood Pressure Blood Pressure 148/72 [Right] O2 Sat by Pulse 100 Oximetry
[2017-09-28] MEDS ORDERED: WATER FOR INJ (PF) 0 ML ONE (20:01)
--- NOTE | 2017-09-28 20:46 | Emergency Department Report ---
Blank Doc - Documentation Documentation: I was asked to assess Ms Kuhn. Patient 10-13 was rescinded by my colleague Dr. Stephens and patient was ready for discharge. When transitional care liaison presented to the ER to take patient back to the longterm, she became very aggressive and she starts saying that she kill Renzo and she kill my babies and she starts throwing objects onto her. Patient obviously in acute psychosis. I believe this patient cannot be discharged at this moment, she will need to be admitted to inpatient psychiatric facilities.
[2017-09-29] MEDS: MOBIC PO SCH ×3 (01:55→22:33)
[2017-09-29] MEDS: ESKALITH PO SCH ×3 (01:56→22:33)
[2017-09-29] MEDS: RisperDAL PO SCH ×2 (01:56→22:33)
[2017-09-29] MEDS: BUSPAR PO SCH ×3 (01:56→22:33)
[2017-09-29] MEDS: DESYREL PO SCH ×2 (01:56→22:33)
[2017-09-29] MEDS: DETROL LA PO SCH (09:55)
--- NOTE | 2017-09-29 17:04 | Progress Note ---
Subjective - Reason for Consult Consult date: 09/29/17 Reason for consult: Psychiatry Follow-up - Chief Complaint Chief complaint: "I didn't do anything" 62 years old female with history of paranoid schizophrenia brought to ER for outburst at her residence. This patient is known to me. 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 The patient was placed back on a 1013 per the ER physician. Today the patient is irritable and wouldn't say much during the assessment. She did state that she didn't do anything wrong in a loud tone during the interview. No gestures of SI/HI's. Mental Status Exam - Vital signs Last Vital Signs Temp 98.3 F 09/29/17 09:29 Pulse 74 09/29/17 09:29 Resp 20 09/29/17 09:29 BP 143/59 09/29/17 09:29 Pulse Ox 99 09/29/17 09:29 - Exam Narrative exam: MSE: Appearance: irritated Behavior: regular eye contact Speech: regular rate with a loud tone Mood: "it don't matter" Affect: congruent to mood Thought Process: circumstantial Thought Content: no gestures of SI/HI's and AVH's Motor Activity: ambulatory Cognition: A/O x 3 Insight: unable to assess Judgment: unable to assess Assessment and Plan Impression: Hx of Schizophrenia. Unspecified Mood DO. Today the patient is irritable during the assessment. UDS is negative. DDx: R/O Bipolar DO, Schizoaffective DO Recommendation/Plan: Continue 1013 with placement to inpatient psy services. Increased Risperdal to 6 mg PO HS for mood/psychosis, and continue [place] 300 mg PO BID for mood, and Buspar 7.5 mg PO BID for anxiety. Discussed possible metabolic side effects of Risperdal with patient.
[2017-09-30] MEDS: BUSPAR PO SCH ×2 (11:08→23:48)
[2017-09-30] MEDS: ESKALITH PO SCH ×2 (11:08→23:49)
[2017-09-30] MEDS: MOBIC PO SCH ×2 (12:51→23:48)
[2017-09-30] MEDS: DETROL LA PO SCH (12:51)
--- NOTE | 2017-09-30 13:45 | Progress Note ---
Subjective - Reason for Consult Consult date: 09/30/17 Reason for consult: Psychiatric Follow-up Evaluation - Chief Complaint Chief complaint: " I would feel better if I were free." Patient is a 62 years old female with history of paranoid schizophrenia brought to ER for outburst at her residence. This patient is known to me. Patient seen sitting in chair looking at magazine. She states " I would feel better if I were free and home with my family. These people want to cause me trouble. I need to see about my great grandchildren." Patient continues to have labile mood and paranoia. Mental Status Exam - Vital signs Last Vital Signs Temp 98.1 F 09/30/17 08:03 Pulse 76 09/30/17 08:03 Resp 18 09/30/17 08:03 BP 164/96 09/30/17 08:03 Pulse Ox 98 09/30/17 08:03 - Exam Narrative exam: Mental Status Exam: General Appearance: Hospital gown, casually dressed Attitude/Behavior: Cooperative but defensive Sensorium/Consciousness: Distracted Orientation: Alert and oriented x 4 (person, place, time and situation) Eye Contact: Intermittent Psychomotor & Musculoskeletal Activity: Sitting in chair Mood: " Disappointed. " Anxious, labile, and easily irritable Affect: Constricted Speech / Language: Loud Thought Processes: Tangential, circumstantial Thought Content: Paranoid - believes staff is poisoning her food. Perception: Auditory hallucinations " I hear the voices saying Ivy Juarez take the peanut butter" Insight: Poor Judgment: Fair to poor Assessment and Plan Impression: Hx of Schizophrenia. Unspecified Mood DO. Today the patient is cooperative, labile, and paranoid. Patient is easily irritable. Currently, patient is at her baseline. She is no danger to self or others. UDS is negative. DDx: R/O Bipolar DO, Schizoaffective DO Recommendation/Plan: 1. Continue 1013 and reassess in 24 hours. 2. Continue Risperdal to 6 mg PO HS for mood/psychosis, and continue [place] 300 mg PO BID for mood, and Buspar 7.5 mg PO BID for anxiety. Discussed possible metabolic side effects of Risperdal with patient. 3. Referred to [facility] for outpatient services/placement.
--- NOTE | 2017-09-30 14:14 | Emergency Department Report ---
Blank Doc - Documentation Documentation: Patient is 62-year-old female who is here for psychosis and behavioral disturbances. Patient is well known to our department. Patient has been cleared by psych at this time and her family is willing to come get her. Patient's been a very difficult patient to place because of issues with her behavior and personal care homes. Patient be discharged home with refills of her medications. 1013 has been rescinded
[2017-09-30] MEDS: DESYREL PO SCH (23:48)
[2017-09-30] MEDS: RisperDAL PO SCH (23:49)
[2017-10-01 08:29] VITALS: BP 130/58
[2017-10-01 09:31] LABS: Basophils # (Auto) 0.1 K/mm3 (0.0-0.1); Basophils % (Auto) 0.6 % (0.0-1.8); Eosinophils # (Auto) 0.2 K/mm3 (0.0-0.4); Eosinophils % (Auto) 2.2 % (0.0-4.3); Hematocrit 34.4 % (30.3-42.9); Hemoglobin 10.8 gm/dl (10.1-14.3); Lymphocytes # (Auto) 2.7 K/mm3 (1.2-5.4); Lymphocytes % (Auto) 29.6 % (13.4-35.0); Mean Corpuscular HGB Conc 31 % (30-34); Monocytes # (Auto) 0.7 K/mm3 (0.0-0.8); Monocytes % (Auto) 7.8 % (0.0-7.3); Platelet Count 407 K/mm3 (140-440); Red Blood Count 5.03 M/mm3 (3.65-5.03); Red Cell Distribution Width 17.6 % (13.2-15.2)
[2017-10-01 09:38] LABS: Mean Corpuscular Hemoglobin 21 pg (28-32); Mean Corpuscular Volume 68 fl (79-97)
[2017-10-01] MEDS: BUSPAR PO SCH (10:40)
[2017-10-01] MEDS: MOBIC PO SCH (10:40)
[2017-10-01] MEDS: ESKALITH PO SCH (10:41)
[2017-10-01] MEDS: DETROL LA PO SCH (10:41)
== END 2017-10-01 12:55 | disposition other institution (70) ==
LOC: ED 11:12 → EEVIPCON 11:12 → ED 10-01 12:55
DX: F20.0 Paranoid schizophrenia (principal); I10 Essential (primary) hypertension; F17.200 Nicotine dependence, unspecified, uncomplicated; E11.9 Type 2 diabetes mellitus without complications; E03.9 Hypothyroidism, unspecified; Z88.8 Allergy status to other drugs, medicaments and biological substances; Z79.84 Long term (current) use of oral hypoglycemic drugs
CPT/HCPCS: 36415; 80048; 80307; 81001; 85025; 96372; 99285; G0480; J3486; 80320; Q0162